=== PATIENT | female | born 1975 | race Caucasian/White ===

== ENCOUNTER 2017-11-21 19:27 | Emergency (ER) | payer OTHER ==
[2017-11-21 19:34] VITALS: BP 146/85; PULSE 70; TEMP 98.1; BMI 26.5
--- NOTE | 2017-11-21 19:36 | PDOC ---
History of Present Illness - General History Source: Patient Exam Limitations: No Limitations - History of Present Illness Initial Comments: 11/21/17 20:07 The patient is a 42 year old female with history of breast CA who presents to the ED complaining of approximately 2 weeks of discharge from her left breast. Today, she squeezed her left nipple and noticed a thicker yellow discharge. She denies any pain in her breasts. The patient does endorse some nausea, but denies diarrhea or constipation. She denies fever or chills. She denies chest pain or shortness of breath. She states her symptoms feel consistent with sensation during breast feeding. LMP October 29. States she is due for a mammogram this month. PAST MEDICAL HISTORY: as per HPI PAST SURGICAL HISTORY: no significant history FAMILY HISTORY: no pertinent history SOCIAL HISTORY: Pt lives with family and is employed. MEDICATIONS: reviewed ALLERGIES: As per nursing notes General: No fevers or chills, no weakness, no weight loss HEENT: No change in vision. No sore throat,. No ear pain CardioVascular: No chest pain or shortness of breath Respiratory:No cough, or wheezing. Gastrointestinal: no nausea, vomiting, diarrhea or constipation, No rectal bleeding Genitourinary: No dysuria, hematuria, or frequency Musculoskeletal: No joint or muscle pain or swelling Neurologic: No headache, vertigo, dizziness or loss of consciousness Psychiatric: nor depression Skin: +Breast discharge from nipples. No rashes or easy bruising Endocrine: no increased thirst or abnormal weight change Allergic: no skin or latex allergy All other systems reviewed and normal General: Well-nourished well-developed individual, no acute distress HEENT: Throat: Normal, tonsils normal, no erythema or exudate Neck: Supple, no meningeal signs, no lymphadenopathy Eyes::Pupils equal reactive and round, extraocular motion intact Chest: Nontender to palpation Cardiac: S1-S2 normal, regular rate and rhythm, no murmurs rubs or gallops Respiratory: Lungs clear to auscultation bilateral Abdomen: Soft, nondistended, normal bowel sounds, nontender to palpation diffusely Extremities: Warm, dry, no cyanosis, clubbing, or edema Skin: No rashes Breast exam: no discharge from either breast. nipple is normal with no erythema and no palpable masses. Neuro: Alert and oriented x3, nonfocal exam, grossly intact, normal gait Psych: Normal mood and affect 11/21/17 20:20 Documentation prepared by Ambika Person, acting as medical data entry clerk for Geo Jarrell MD. <Ambika Person - Last Filed: 11/21/17 20:17> - General History Source: Patient Exam Limitations: No Limitations - History of Present Illness Initial Comments: A portion of this note was documented by scribe services under my direction. I have reviewed the details of the note, within reason, and agree with the documentation. The case summary and management plan written by me. Assessment plan: This is a 42-year-old female who comes in complaining of 2 weeks of intermittent discharge from her left nipple. Patient here in the emergency room was not experiencing any discharge from the nipple and I was unable to express any discharge on exam. Otherwise patient had a normal breast exam there was no evidence of a cellulitis, infection or mastitis. 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 Patient will follow-up with her OB in the morning. 11/21/17 21:49 <Geo Jarrell I - Last Filed: 11/21/17 21:50> - General Chief Complaint: Redness To Affected Area Stated Complaint: DISCHARGE FROM LEFT BREAST Time Seen by Provider: 11/21/17 19:35 Past History <Ambika Person - Last Filed: 11/21/17 20:17> - Past Medical History COPD: No Other medical history: DENIES - Suicide/Smoking/Psychosocial Hx Smoking History: Never smoked Have you smoked in the past 12 months: No Information on smoking cessation initiated: No Hx Alcohol Use: No Drug/Substance Use Hx: No Substance Use Type: None <Geo Jarrell I - Last Filed: 11/21/17 21:50> - Past Medical History Allergies/Adverse Reactions: Allergies Allergy/AdvReac Type Severity Reaction Status Date / Time No Known Allergies Allergy Verified 11/21/17 19:30 Home Medications: Ambulatory Orders NK [No Known Home Medication] 11/21/17 *Physical Exam - Vital Signs Last Vital Signs Temp Pulse Resp BP Pulse Ox 98.1 F 70 16 146/85 100 11/21/17 19:31 11/21/17 19:31 11/21/17 19:31 11/21/17 19:31 11/21/17 19:31 <Ambika Person - Last Filed: 11/21/17 20:17> - Vital Signs Last Vital Signs Temp Pulse Resp BP Pulse Ox 98.1 F 70 16 146/85 100 11/21/17 19:31 11/21/17 19:31 11/21/17 19:31 11/21/17 19:31 11/21/17 19:31 <Geo Jarrell I - Last Filed: 11/21/17 21:50> *DC/Admit/Observation/Transfer <Ambika Person - Last Filed: 11/21/17 20:17> - Discharge Dispostion Admit: No <Geo Jarrell I - Last Filed: 11/21/17 21:50> Diagnosis at time of Disposition: Breast discharge - Discharge Dispostion Disposition: HOME Condition at time of disposition: Stable - Patient Instructions Additional Instructions: It is very important that you call your OB doctor in the morning and get an appointment for as soon as possible to follow-up with your OB doctor. Return to the emergency department immediately with ANY new, persistent or worsening symptoms. Continue any medications as previously prescribed by your physician. You should follow up with your primary doctor as soon as possible regarding today's emergency department visit. . Please make sure your doctor reviews the results of your emergency evaluation. Thank you for coming to the Emergency Department today for your care. It was a pleasure to see you today. Please note that your evaluation is INCOMPLETE until you follow-up with your doctor.
== END 2017-11-21 20:29 | disposition home or self-care (01) ==
LOC: FER 19:27
DX: N64.52 Nipple discharge (principal); Z85.3 Personal history of malignant neoplasm of breast
CPT/HCPCS: 99281-25